=== PATIENT | male | born 1930 | race Caucasian/White ===

== ENCOUNTER → 2017-12-06 | Outpatient (CLI) | payer MEDICARE ==
--- NOTE | 2017-12-06 17:44 | RADIOLOGY REPORT (SQ) ---
EXAM DESCRIPTION: HIP LEFT AP/LATERAL COMPLETED DATE/TIME: 12/06/2017 5:30 pm REASON FOR STUDY: Trochanteric bursitis of left hip COMPARISON: None. NUMBER OF VIEWS: Two views hip including AP pelvis and frog lateral left hip. LIMITATIONS: None. FINDINGS: Normal bone density. Mild osteopenia. Hip joint spaces look fairly well maintained. The re is some degenerative spurring particularly on the left. No pelvic or hip fracture or bone lesion. Lower lumbar spondylosis. OTHER: No other significant finding. IMPRESSION: No fracture or bone lesion. Mild DJD. TECHNICAL DOCUMENTATION: JOB ID: [id number] Reading location - IP/workstation name: [email or web address]
== END ==
LOC: OD 17:12
PROVIDERS: ATTEND Family Medicine
DX: M70.62 Trochanteric bursitis, left hip (principal)

== ENCOUNTER → 2019-01-03 | Outpatient (CLI) | payer MEDICARE ==
--- NOTE | 2019-01-03 12:18 | RADIOLOGY REPORT (SQ) ---
EXAM DESCRIPTION: U/S ABD AORTIC SCREENING COMPLETED DATE/TIME: 01/03/2019 10:46 am REASON FOR STUDY: (Z13.6)ENCOUNTER FOR SCREENING FOR CARDIOVASCULAR DISORDERS Z13.6 ENCOUNTER FOR S CREENING FOR CARDIOVASCULAR DISORDERS COMPARISON: 05/05/2016 TECHNIQUE: Static and dynamic grayscale images acquired of the aorta and stored on PACs. Selected co garima Doppler and spectral images recorded. LIMITATIONS: None. FINDINGS: AORTIC CALIBER MAXIMAL PROXIMAL: 2.4 cm. MID: 2.6 cm. DISTAL: 1.9 cm. ILIAC DIAMETER RIGHT: 1.2 cm. LEFT: 1.3 cm. OTHER: Scattered aortoiliac atherosclerosis. 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 COMMENT: Aortic aneurysm imaging followup: 2.6-2.9 cm Every 5 years* *Based upon the Society for Vascular Surgery Guidelines: J Vasc Surg. 2009 Oct;50(4 Suppl):S2-49 *For aortas of maximum diameter of 2.6-2.9 cm meeting the criteria for AAA (?1.5 x proximal normal se gment) TECHNICAL DOCUMENTATION: JOB ID: [id number] [employer]- All Rights Reserved Reading location - IP/workstation name: [email or web address]
== END ==
LOC: RAD 09:49
PROVIDERS: ATTEND Family Medicine
DX: Z13.6 Encounter for screening for cardiovascular disorders (principal); I77.811 Abdominal aortic ectasia; Z09 Encounter for follow-up examination after completed treatment for conditions other than malignant neoplasm; Z87.891 Personal history of nicotine dependence
CPT/HCPCS: 76706